=== PATIENT | female | born 1960 | race Hispanic/Latino ===

== ENCOUNTER 2023-02-13 12:40 | Outpatient (CLI) | payer BC, SELFPAY ==
--- NOTE | 2023-02-14 06:15 | WPDPFTINT ---
PFT Procedure Performed PFT Procedure Performed Spirometry with Pre/Post Bronchodilator Plethysmography (Lung Vol) Diffusing Cap (DLCO) Flow Vol Loop PFT Interpretation This is a pulmonary function test with pre and post-bronchodilator spirometry, plethysmography and diffusing capacity. The test was performed and results interpreted in accordance with the 2019 and 2005 ATS/ERS Task Force guidelines respectively using the Global Lung Function Initiative-2012 reference equations. Patient demonstrated good effort and cooperation. Reproducibility criteria were met. The quality of the pre bronchodilator spirometry maneuver was Grade A and post bronchodilator spirometry maneuver was Grade A. Findings: Spirometry: The contour the inspiratory and expiratory flow tracing are normal. The pre bronchodilator FVC is 2.59 L, 103% predicted. The the pre bronchodilator FEV1 is 2.09 L, 102% predicted. The pre bronchodilator FEV1: FVC ratio is 81%. The post bronchodilator FVC is 2.59 L, representing no change. The post bronchodilator FEV1 is 2.16 L, representing a 3% increase. The post bronchodilator FEV1: FVC ratio is 83%. Plethysmography: The total lung capacity is 4.51 L, 95% predicted. The functional residual capacity is 1.73 L, 65% predicted. The residual volume is 1.70 L, 91% predicted. Diffusing capacity: The diffusing capacity unadjusted for hemoglobin and carboxyhemoglobin is 19.5, 94% predicted. The diffusing capacity adjusted for alveolar volume is 5.16, 114% predicted. Impression: The spirometry is normal without evidence of an obstructive abnormality. There is no significant improvement after inhaling a single dose of albuterol. The lung volumes are normal. The diffusing capacity is normal. There are no prior studies for comparison
== END 2023-02-13 12:41 | disposition home or self-care (01) ==
PROVIDERS: PCP Nurse Practitioner Family; Visit Provider Nurse Practitioner Family
DX: J41.1 Mucopurulent chronic bronchitis (principal)
CPT/HCPCS: 94060; 94726; 94729

== ENCOUNTER 2023-04-03 02:55 | Day surgery (SDC) | payer BC, SELFPAY ==
[2023-03-17 14:42] VITALS: BMI 43.5
--- NOTE | 2023-04-01 08:53 | SUR.PREOP ---
Patient called regarding upcoming procedure. Reviewed preop instructions, appointment times, and procedure prep.
--- NOTE | 2023-04-02 09:40 | P.PNAN_ITS ---
Anes - Initial Pre Proc Eval Procedure: Operation Date: 04/03/23 12:30 Proposed Procedures p Screening Colonoscopy - Patrick Lizarraga MD Date/Time: 04/02/23 09:40 Surgeon: Patrick Lizarraga MD Pre Op Diagnosis: neoplasm screening Patient Data Age: 62 Gender: F Height: 1.57 m Weight: 108 kg Allergies Allergy/AdvReac Type Severity Reaction Status Date / Time No Known Allergies Allergy Verified 04/03/23 11:24 Home Medications Medication Instructions Recorded Confirmed Type hydrochlorothiazide 25 mg tablet 25 mg PO DAILY 02/25/22 03/17/23 History albuterol sulfate 90 mcg/actuation 2 inh inhalation Q4H #8.5 grams 06/09/22 03/17/23 Rx aerosol inhaler meloxicam 15 mg tablet 15 mg PO DAILY #90 tabs 09/22/22 03/17/23 Rx benzonatate 200 mg capsule 200 mg PO TID PRN cough #30 caps 12/03/22 03/17/23 Rx chlorthalidone 25 mg tablet 25 mg PO DAILY 04/03/23 04/03/23 History Patient hx anesthesia problems: none Family hx anesthesia problems: none Results Review: All pre-operative results and documents have been reviewed as part of the pre- operative evaluation. [facility] Past Medical History Medical History Kidney stones UTI (urinary tract infection) Surgical History Surgical History H/O ureteroscopy (~2016) History of (~1986) History of primary section (~1982) Previous section (~1998) Family History Family History Sibling Hypertension Mother Hepatitis C Social History Social History Smoking status: Never smoker Alcohol intake: current Alcohol use details: 1 - 2 monthly Substance use: never Substance use type: does not use Lack of Transportation: No Lack of Food: Never True Current Housing: I Have Housing Concerned About Future Housing: No Difficulty Paying Gas/Electric Bills: No Difficulty Paying for Meds: No Currently Unemployed: No Education: High School Diploma/GED Difficulty w/ Childcare or Family Care: No Living arrangements: with family Occupation/Education: occupation Gender identity (if verbalized by the patient): Female Spiritual care concerns: No Anes - Eval Final PreProcedure Day of Procedure 04/02/23 09:40 Patient weight: morbidly obese Heart: regular rate and rhythm Lungs: clear to auscultation Airway: Mallampati scale class II Neurological: alert and oriented Last oral intake: >/= 8 hours ASA classification: III Emergent: no Anesthetic plan: proceed Anesthesia type and monitoring: general GIVS and standard monitoring Results Review: All pre-operative results and documents have been reviewed as part of the pre- operative evaluation. Informed Consent: The patient's anesthetic plan and its attendant risks and benefits were discussed with the patient/family/POA. Questions were solicited and answers provided to the satisfaction of the patient/family/POA.
[2023-04-03 11:27] VITALS: BP 146/78; PULSE 78; RESP 20; TEMP 36.8; O2SAT 98; BMI 43.7
--- NOTE | 2023-04-03 11:31 | PM.HPGS ---
History of Present Illness History of Present Illness Consent: Risks, benefits, and alternatives have been discussed and questions answered. Patient agrees to proceed with procedure. Chief complaint: neoplasm screening Narrative: Betsy Britt is a 62 year old female presents for screening colonoscopy. Patient's current weight appetite and bowel movements are normal. She denies abdominal pain. She has had no bleeding. She reports prior colonoscopy 10 years ago was unremarkable. Review of Systems Review of Systems: Review of systems noncontributory. [facility] Past Medical History Medical History Kidney stones UTI (urinary tract infection) Surgical History Surgical History H/O ureteroscopy (~2016) History of (~1986) History of primary section (~1982) Previous section (~1998) Family History Family History Sibling Hypertension Mother Hepatitis C Social History Social History Smoking status: Never smoker Alcohol intake: current Alcohol use details: 1 - 2 monthly Substance use: never Substance use type: does not use Lack of Transportation: No Lack of Food: Never True Current Housing: I Have Housing Concerned About Future Housing: No Difficulty Paying Gas/Electric Bills: No Difficulty Paying for Meds: No Currently Unemployed: No Education: High School Diploma/GED Difficulty w/ Childcare or Family Care: No Living arrangements: with family Occupation/Education: occupation Gender identity (if verbalized by the patient): Female Spiritual care concerns: No Meds Home Medications and Allergies Home Medications Medication Instructions Recorded Confirmed Type hydrochlorothiazide 25 mg tablet 25 mg PO DAILY 02/25/22 03/17/23 History albuterol sulfate 90 mcg/actuation 2 inh inhalation Q4H #8.5 grams 06/09/22 03/17/23 Rx aerosol inhaler meloxicam 15 mg tablet 15 mg PO DAILY #90 tabs 09/22/22 03/17/23 Rx benzonatate 200 mg capsule 200 mg PO TID PRN cough #30 caps 12/03/22 03/17/23 Rx chlorthalidone 25 mg tablet 25 mg PO DAILY 04/03/23 04/03/23 History Allergies Allergy/AdvReac Type Severity Reaction Status Date / Time No Known Allergies Allergy Verified 04/03/23 11:24 Vital Signs Vital Signs - 24 hr 04/03/23 11:27 Temperature 98.3 F Pulse Rate 78 Respiratory Rate 20 Blood Pressure 146/78 H Pulse Oximetry 98 Oxygen Delivery Room Air Exam Narrative: Physical exam reveals patient to be alert. Vital signs stable. HEENT exam is unremarkable. Patient is anicteric. Lungs are clear to auscultation and percussion. Heart is without murmur or extra sounds. Abdomen bowel sounds are present soft nontender with no organomegaly. Digital external rectal exam normal. Assessment and Plan Assessment and plan (1) Encounter for screening colonoscopy: Code(s): Z12.11 - Encounter for screening for malignant neoplasm of colon Status: Acute Assessment and Plan: Patient presents for screening colonoscopy. Further recommendations may be given after endoscopy.
[2023-04-03] MEDS: LACTATED RINGERS 1,000 ML 150 ML IV CONT (11:33)
[2023-04-03 12:29] VITALS: BP 107/65; PULSE 77; RESP 20; O2SAT 98
[2023-04-03 12:39] VITALS: BP 125/83; PULSE 71; RESP 22; O2SAT 100
[2023-04-03 12:49] VITALS: BP 136/85; PULSE 70; RESP 20; O2SAT 100
== END 2023-04-03 13:04 | disposition home or self-care (01) ==
PROVIDERS: PCP Family Medicine Adolescent Medicine; Visit Provider Internal Medicine Gastroenterology
PROC: 0DJD8ZZ Inspection of Lower Intestinal Tract, Via Natural or Artificial Opening Endoscopic (ICD-10-PCS; CPT 45378; principal; 2023-04-03 12:30)
DX: Z12.11 Encounter for screening for malignant neoplasm of colon (principal); K64.8 Other hemorrhoids; Z79.51 Long term (current) use of inhaled steroids; E66.01 Morbid (severe) obesity due to excess calories; Z68.41 Body mass index [BMI] 40.0-44.9, adult
CPT/HCPCS: 45378; J2704; J7120

== ENCOUNTER 2023-05-18 08:26 | Outpatient (CLI) | payer BC, SELFPAY ==
[2023-05-18 08:58] LABS: Anion Gap 4 mmol/L (8-16); Blood Urea Nitrogen 14 mg/dL (7-17); Calcium 9.7 mg/dL (8.4-10.2); Carbon Dioxide 34 mmol/L (22-30); Chloride 102 mmol/L (98-107); Estimated Glomerular Filt Rate > 60; Glucose 108 mg/dL (65-110); Potassium 3.9 mmol/L (3.4-5.0); Sodium 140 mmol/L (137-145)
== END 2023-05-18 08:27 | disposition home or self-care (01) ==
PROVIDERS: Anesthesiology; PCP Family Medicine Adolescent Medicine; Visit Provider Obstetrics & Gynecology
DX: Z51.81 Encounter for therapeutic drug level monitoring (principal); Z79.899 Other long term (current) drug therapy; Z01.818 Encounter for other preprocedural examination
CPT/HCPCS: 36415; 80048

== ENCOUNTER 2023-05-22 00:28 | Day surgery (SDC) | payer BC, SELFPAY ==
[2023-05-13 15:45] VITALS: BMI 43.9
--- NOTE | 2023-05-13 16:07 | PC.NURSE ---
Report to the Outpatient Waiting Room, entrance under the green pavilion located off [facility], at time __8:30AM on date __05/22/23 . Planned Procedure Time: __10:30AM . Time changes happen often and if your time is changed the preop area will call you the afternoon before. - You and your visitor will be asked to self-screen and do not enter if you have any COVID symptoms. - A mask is optional within the hospital at this time. Patients may have clear liquids (water, carbonated beverages, clear teas, apple juice) until 3 hours prior to surgery with a maximum of 20 ounces. - No food from midnight until time of surgery. Take the following medications with a SIP of water the morning of surgery: __INHALER NEEDED DO NOT STOP ANY OF YOUR OTHER PRESCRIPTION MEDICATIONS PRIOR TO SURGERY ?EXCEPT THE FOLLOWING Medications to discontinue per physician NONE Date to take last dose Please no make-up, nail czech, hairspray, perfume, deodorant, or body powder the day of surgery. No jewelry (including any body piercings) or valuables the day of surgery, leave them at home. Please take a shower or bath the night before, or the morning of, surgery with an antibacterial soap. Wear comfortable, loose fitting clothing. - Jewelry must be removed prior to entering the operating room. Rings and piercings that are not removed may be cut off. - The hospital will not accept responsibility for valuables. - Please leave all valuables, including medications, at home the day of surgery. If you are going home after surgery, a licensed ice cream truck driver must drive you home. - NO public transportation without another adult if you receive anesthesia. - We recommend that an adult stay with you for 24 hours following discharge. - We also recommend that you do not drive, make important decision, drink alcoholic beverages, or take any drugs that were not prescribed by your health care provider for at least 24 hours after your discharge time. Follow any additional instructions given to you from your surgeon. If you or anyone in your household have experienced Covid symptoms in the past week, please notify your surgeon or the nurse liaison at the phone number below for possible testing. Telephone instructions given to ____PATIENT and asked if any additional questions and then verbalized understanding. Patient advised to call surgeon office or pre surgery nurse liaison [phone] if any additional questions.
--- NOTE | 2023-05-21 13:57 | PM.IMHP ---
H&P: HPI History of Present Illness Date/Time: 05/21/23 13:57 Chief Complaint: Endometrial polyp Narrative: Patient with episode of postmenopausal bleeding. She had endometrial biopsy in the office which showed endometrial polyp. She was recommended for D and C hysteroscopy. Review of Systems Review of Systems: All systems reviewed & are unremarkable except as noted in HPI and below Cardiovascular: Cardiovascular: Reports no additional cardiovascular complaints, Denies chest pain and Denies dyspnea Respiratory: Respiratory: Reports no additional respiratory complaints and Denies dyspnea Gastrointestinal: Gastrointestinal: Reports abdominal pain, Denies change in bowel habits, Denies diarrhea, Denies nausea and Denies vomiting Genitourinary: Genitourinary: Reports pelvic pain Musculoskeletal: Musculoskeletal: Reports back pain Integumentary/Breasts: Skin/Breast: Reports system reviewed and no additional complaints, except as docu Neurologic: Reports system reviewed and no additional complaints, except as documented PMF Past Medical History Medical History Kidney stones Morbid obesity UTI (urinary tract infection) Surgical History Surgical History H/O ureteroscopy (~2016) History of (~1986) History of primary section (~1982) Previous section (~1998) Family History Family History Sibling Hypertension Mother Hepatitis C Social History Social History Smoking status: Never smoker Alcohol intake: current Alcohol use details: 1 - 2 monthly Substance use: never Substance use type: does not use Lack of Transportation: No Lack of Food: Never True Current Housing: I Have Housing Concerned About Future Housing: No Difficulty Paying Gas/Electric Bills: No Difficulty Paying for Meds: No Currently Unemployed: No Education: High School Diploma/GED Difficulty w/ Childcare or Family Care: No Living arrangements: with family Additional living arrangements comments: [employer]- Occupation/Education: occupation Gender identity (if verbalized by the patient): Female Spiritual care concerns: No Meds Home Medications and Allergies Home Medications Medication Instructions Recorded Confirmed Type chlorthalidone 25 mg tablet 25 mg PO QAM 04/03/23 05/13/23 History albuterol sulfate 90 mcg/actuation 2 inh inhalation Q4H PRN Shortness 05/13/23 05/13/23 History aerosol inhaler Of Breath Or Wheezing loratadine 10 mg tablet (Claritin) 10 mg PO DAILY 05/13/23 05/13/23 History meloxicam 15 mg tablet 15 mg PO QAM 05/13/23 05/13/23 History Allergies Allergy/AdvReac Type Severity Reaction Status Date / Time No Known Allergies Allergy Verified 05/13/23 15:41 Exam Const: Orientation/consciousness: oriented to person and oriented to place HENMT: Head: normal to inspection Eyes: General: appearance normal, both eyes and all related structures Resp: Effort & Inspection: normal respiratory effort Auscultation: clear to auscultation bilaterally Cardio: Rate: regular rate Rhythm: regular rhythm GI: Inspection: normal to inspection GI Palp: No Rebound tenderness present Neuro: General: oriented to person and oriented to place Cognition (Neuro): normal cognition Extrem: General: normal to inspection Psych: Appearance: grossly normal and well kempt Assessment and Plan Assessment and plan (1) Endometrial polyp: Code(s): N84.0 - Polyp of corpus uteri Status: Acute Assessment and Plan: Will proceed with Dilation and curettage and hysteroscopy and removal of endometrial lesion if present. (2) Postmenopausal bleeding: Code(s): N95.0 - Postmenopausal bleeding Status: Acute
[2023-05-22] MEDS: ACETAMINOPHEN 500 MG TABLET 1000 MG PO (09:00)
[2023-05-22] MEDS: LACTATED RINGERS 1,000 ML 30 ML IV CONT (09:00)
--- NOTE | 2023-05-22 09:21 | WPDANESEPPF ---
Anes - Initial Pre Proc Eval Procedure: Operation Date: 05/22/23 10:30 Proposed Procedures p Hysteroscopy Dilation and Curettage with Removal of any Endometrial Lesion, If Necessary - Roland Naik MD Date/Time: 05/22/23 09:21 Surgeon: Roland Naik MD Pre Op Diagnosis: endometrial polyp, post menopausal bleeding Patient Data Age: 63 Gender: F Height: 1.57 m Weight: 109 kg Allergies Allergy/AdvReac Type Severity Reaction Status Date / Time No Known Allergies Allergy Verified 05/13/23 15:41 Home Medications Medication Instructions Recorded Confirmed Type chlorthalidone 25 mg tablet 25 mg PO QAM 04/03/23 05/13/23 History albuterol sulfate 90 mcg/actuation 2 inh inhalation Q4H PRN Shortness 05/13/23 05/13/23 History aerosol inhaler Of Breath Or Wheezing loratadine 10 mg tablet (Claritin) 10 mg PO DAILY 05/13/23 05/13/23 History meloxicam 15 mg tablet 15 mg PO QAM 05/13/23 05/13/23 History Patient hx anesthesia problems: none Family hx anesthesia problems: none Results Review: All pre-operative results and documents have been reviewed as part of the pre-operative evaluation. [facility] Past Medical History Medical History (Updated 05/22/23 @ 09:21 by Marv Jha MD) Kidney stones Morbid obesity UTI (urinary tract infection) Surgical History Surgical History H/O ureteroscopy (~2016) History of (~1986) History of primary section (~1982) Previous section (~1998) Family History Family History Sibling Hypertension Mother Hepatitis C Social History Social History Smoking status: Never smoker Alcohol intake: current Alcohol use details: 1 - 2 monthly Substance use: never Substance use type: does not use Lack of Transportation: No Lack of Food: Never True Current Housing: I Have Housing Concerned About Future Housing: No Difficulty Paying Gas/Electric Bills: No Difficulty Paying for Meds: No Currently Unemployed: No Education: High School Diploma/GED Difficulty w/ Childcare or Family Care: No Living arrangements: with family Additional living arrangements comments: [place]- Occupation/Education: occupation Gender identity (if verbalized by the patient): Female Spiritual care concerns: No Anes - Eval Final PreProcedure Day of Procedure 05/22/23 09:21 Patient weight: morbidly obese Heart: regular rate and rhythm Lungs: clear to auscultation Airway: Mallampati scale class II Neurological: alert and oriented Last oral intake: >/= 8 hours ASA classification: III Emergent: no Anesthetic plan: proceed Anesthesia type and monitoring: general GIVS and standard monitoring Results Review: All pre-operative results and documents have been reviewed as part of the pre-operative evaluation. Informed Consent: The patient's anesthetic plan and its attendant risks and benefits were discussed with the patient/family/POA. Questions were solicited and answers provided to the satisfaction of the patient/family/POA.
[2023-05-22 09:30] VITALS: BP 141/81; PULSE 77; RESP 18; TEMP 36.6; O2SAT 97
--- NOTE | 2023-05-22 09:39 | WPDHPUPDATE1 ---
History and Physical Update Update Date/Time: 05/22/23 09:39 History and Physical has been reviewed, including an updated exam of the patient. There are NO changes in the patient's condition. Risks, benefits, and alternatives have been discussed and questions answered. Patient agrees to proceed with procedure.
[2023-05-22] MEDS: ceFAZolin 2 GM/D5W 50 ML 2 GM/50 ML BAG IVPB (10:00)
[2023-05-22] MEDS: LIDOCAINE HCL 1% LOCAL INJ 20 ML VIAL 10 ML INFILTRATE (10:14)
--- NOTE | 2023-05-22 10:39 | W.PM.PROC2 ---
Procedure Note - Detailed Date of Procedure 05/22/23 Pre-op Diagnosis endometrial polyp, post menopausal bleeding Post-op Diagnosis Same Procedure Performed Hysteroscopy with removal of endometrial growths, dilation and curettage Surgeon Roland Naik MD Anesthesia MAC and Local Indications Postmenopausal bleeding and endometrial polyp on endometrial biopsy Findings Uterus sound to 8.5, multiple growth in uterus, some consistent with polyp consistency, some of the lesions were calcified and consistent with calcified fibroids Description of Procedure After informed consent was obtained patient was taken to the operating room and adequate IV sedation was administered. Attention was turned to the vagina. Speculum was inserted. Single-tooth tenaculum placed on the anterior lip of the cervix. The uterus was sounded to 8.5cm. The cervix was dilated to an 4 Corea dilator. The hysteroscope was inserted into the cavity. The findings per above. The Aveta shaving instrument was used to remove all of the multiple growths. Several pieces were retrieved with grasper. A curettage was performed and the hysteroscope was inserted. The cavity was normal. The hysteroscope was removed the single-tooth tenaculum was removed hemostasis was noted at the tenaculum site. Sponge count correct. The patient taken to recovery in stable condition. Estimated Blood Loss 5 Drains No Packing No Pathology Yes (Shavings and endometrial curettings) Complications No immediate complications Condition Stable Disposition Same day [facility] Billing Surgery - Charge Forward: Surgery Billing
[2023-05-22 10:40] VITALS: BP 108/59; PULSE 80; RESP 20; O2SAT 94
[2023-05-22 11:00] VITALS: BP 116/62; PULSE 79; RESP 16; O2SAT 95
[2023-05-22 11:30] VITALS: BP 128/68; PULSE 67; RESP 16
[2023-05-22] MEDS: oxyCODONE HCL (*CRX) 5 MG TAB IR PO (11:34)
== END 2023-05-22 11:43 | disposition home or self-care (01) ==
PROVIDERS: PCP Family Medicine Adolescent Medicine; Visit Provider Obstetrics & Gynecology
PROC: 0U5B8ZZ Destruction of Endometrium, Via Natural or Artificial Opening Endoscopic (ICD-10-PCS; CPT 58563; principal; 2023-05-22 10:30)
DX: N95.0 Postmenopausal bleeding (principal); N84.0 Polyp of corpus uteri; D25.9 Leiomyoma of uterus, unspecified; Z79.51 Long term (current) use of inhaled steroids; E66.01 Morbid (severe) obesity due to excess calories; Z68.41 Body mass index [BMI] 40.0-44.9, adult
CPT/HCPCS: 58558; 88305; A9270; J0690; J1100; J2250; J2371; J2405; J2704; J3010; J7120

== ENCOUNTER 2023-10-07 14:05 | Outpatient (CLI) | payer BC, SELFPAY ==
--- NOTE | ~2023-10-07 | US_ITS ---
EXAMINATION: US soft tissue UE RT DATE: 10/07/2023 14:19 INDICATION: Localized swelling, mass and lump, right upper limb. TECHNIQUE: Multiple grayscale and Doppler ultrasound images of the right upper limb were obtained. COMPARISON: None FINDINGS: In the patient's area of concern in the right upper arm, there is a 2.5 x 1.1 x 3.0 cm subc utaneous mass with similar echogenicity and echotexture to subcutaneous fat, consistent with a lipoma . IMPRESSION: 1. 3.0 cm lipoma in right upper arm. Reviewed, dictated and finalized at location A.
== END 2023-10-07 14:06 ==
LOC: MICIMG 14:06
PROVIDERS: PCP Family Medicine Adolescent Medicine; Visit Provider Nurse Practitioner Family
DX: R22.31 Localized swelling, mass and lump, right upper limb (principal)
CPT/HCPCS: 76882

== ENCOUNTER 2023-11-11 00:45 | Day surgery (SDC) | payer BC, SELFPAY ==
[2023-11-04 16:00] VITALS: BMI 43.0
--- NOTE | 2023-11-04 16:00 | PC.NURSE ---
Report to the Outpatient Waiting Room, entrance under the green pavilion located off [facility], at time _1100_ on date _[id number]_. Planned Procedure Time: _1pm_. Time changes happen often and if your time is changed the preop area will call you the afternoon before. - You and your visitor will be asked to self-screen and do not enter if you have any COVID symptoms. - A mask is optional within the hospital at this time. Patients may have clear liquids (water, carbonated beverages, clear teas, apple juice) until 3 hours prior to surgery with a maximum of 20 ounces. - No food from midnight until time of surgery Take the following medications with a SIP of water the morning of surgery: None DO NOT STOP ANY OF YOUR OTHER PRESCRIPTION MEDICATIONS PRIOR TO SURGERY ?EXCEPT THE FOLLOWING Medications to discontinue per physician ____Terzepatide Date to take last dose___Do not take dose [id number] Please no make-up, nail azeri, hairspray, perfume, deodorant, or body powder the day of surgery. No jewelry (including any body piercings) or valuables the day of surgery, leave them at home. Please take a shower or bath the night before, or the morning of, surgery with an antibacterial soap. Wear comfortable, loose fitting clothing. - Jewelry must be removed prior to entering the operating room. Rings and piercings that are not removed may be cut off. - The hospital will not accept responsibility for valuables. - Please leave all valuables, including medications, at home the day of surgery. If you are going home after surgery, a licensed retail delivery driver must drive you home. - NO public transportation without another adult if you receive anesthesia. - We recommend that an adult stay with you for 24 hours following discharge. - We also recommend that you do not drive, make important decision, drink alcoholic beverages, or take any drugs that were not prescribed by your health care provider for at least 24 hours after your discharge time. Follow any additional instructions given to you from your surgeon. If you or anyone in your household have experienced Covid symptoms in the past week, please notify your surgeon or the nurse liaison at the phone number below for possible testing. Telephone instructions given to _Betsy__and asked if any additional questions and then verbalized understanding. Patient advised to call surgeon office or pre surgery nurse liaison [phone] if any additional questions.
[2023-11-11] MEDS: LACTATED RINGERS 1,000 ML 30 ML IV CONT (11:30)
--- NOTE | 2023-11-11 11:51 | WPDHPUPDATE1 ---
History and Physical Update Update Date/Time: 11/11/23 11:51 History and Physical has been reviewed, including an updated exam of the patient. There are NO changes in the patient's condition. Risks, benefits, and alternatives have been discussed and questions answered. Patient agrees to proceed with procedure.
--- NOTE | 2023-11-11 11:56 | WPDANESEPP ---
Anes - Eval Pre Procedure Procedure: Operation Date: 11/11/23 13:00 Proposed Procedures p Excision Subcutaneous Mass Right Upper Arm - Vitor De Souza MD Date/Time: 11/11/23 11:56 Pre Op Diagnosis: 3 cm Subcutaneous Mass Right Arm Patient Data Age: 63 Gender: F Height: 1.57 m Weight: 106.8 kg Allergies Allergy/AdvReac Type Severity Reaction Status Date / Time No Known Allergies Allergy Verified 11/04/23 15:53 Home Medications Medication Instructions Recorded Confirmed Type chlorthalidone 25 mg tablet 25 mg PO QAM 04/03/23 11/04/23 History albuterol sulfate 90 mcg/actuation 2 inh inhalation Q4H PRN Shortness 05/13/23 11/04/23 History aerosol inhaler Of Breath Or Wheezing loratadine 10 mg tablet (Claritin) 10 mg PO DAILY 05/13/23 11/04/23 History meloxicam 15 mg tablet 15 mg PO QAM 05/13/23 11/04/23 History tirzepatide (weight loss) 5 mg/0.5 5 mg (0.5 mL) subcut WEEKLY #2 mL 10/26/23 11/04/23 Rx mL subcutaneous pen injector (Zepbound) Patient hx anesthesia problems: other (arrhythmia with eswl) Family hx anesthesia problems: none Results Review: All pre-operative results and documents have been reviewed as part of the pre-operative evaluation. [facility] Past Medical History Medical History (Updated 11/11/23 @ 11:57 by Malou Ferrara CRNA) Kidney stones Morbid obesity Osteoarthritis UTI (urinary tract infection) Surgical History Surgical History H/O ureteroscopy (~2016) History of (~1986) History of primary section (~1982) Previous section (~1998) Family History Family History Sibling Hypertension Mother Hepatitis C Social History Social History Smoking status: Never smoker Alcohol intake: current Alcohol use details: 1 - 2 monthly Substance use: never Substance use type: does not use Lack of Transportation: No Lack of Food: Never True Current Housing: I Have Housing Concerned About Future Housing: No Difficulty Paying Gas/Electric Bills: No Difficulty Paying for Meds: No Currently Unemployed: No Education: High School Diploma/GED Difficulty w/ Childcare or Family Care: No Living arrangements: with family Additional living arrangements comments: [employer]- Occupation/Education: occupation Gender identity (if verbalized by the patient): Female Spiritual care concerns: No Exam Day of Procedure 11/11/23 11:56
--- NOTE | 2023-11-11 11:58 | P.PNAN_ITS ---
Anes - Eval Final PreProcedure Day of Procedure 11/11/23 11:58 Patient weight: morbidly obese Heart: regular rate and rhythm Lungs: clear to auscultation Airway: Mallampati scale class II Neurological: alert and oriented Last oral intake: >/= 8 hours ASA classification: III Emergent: no Anesthetic plan: proceed Anesthesia type and monitoring: general GIVS and standard monitoring Results Review: All pre-operative results and documents have been reviewed as part of the pre- operative evaluation. Informed Consent: The patient's anesthetic plan and its attendant risks and benefits were discussed with the patient/family/POA. Questions were solicited and answers provided to the satisfaction of the patient/family/POA.
[2023-11-11 12:00] VITALS: BP 141/66; PULSE 76; RESP 16; TEMP 36.6; O2SAT 97
[2023-11-11] MEDS: BUPIVACAINE/EPINEPHRINE 0.5% 50 ML VIAL 20 ML INFILTRATE (12:20)
[2023-11-11 12:43] VITALS: BP 124/71; PULSE 77; RESP 16; O2SAT 95
--- NOTE | 2023-11-11 12:46 | P.OP_ITS ---
Procedure Note - Detailed Date of Procedure 11/11/23 Pre-op Diagnosis 3 cm Subcutaneous Mass Right upper arm Post-op Diagnosis Same Procedure Performed Excision 3.4 cm subcutaneous mass right upper arm Surgeon Vitor De Souza MD Ems Instructor Catina Stephens [facility] Anesthesia MAC and Local Indications Patient has a tender nodule in the lateral mid right upper arm. Ultrasound imaging suggest this is a lipoma about 3 cm in size. Clinical findings are consistent with a lipoma as well. She is taken to surgery now for excision. Findings Superficial subcutaneous lipoma that measured 3.4 x 3 x 1.5 cm. Description of Procedure Patient was checked in the preoperative holding area. The proposed incision and area of the subcutaneous nodule were marked on the right arm. She was then taken to surgery and placed in supine position with the right arm somewhat over her anterolateral trunk. The area of the lesion was prepped and draped. Local was infiltrated in the area the anticipated incision. Incision was made and almost immediately under the skin was noted a nodule grossly consistent with a lipoma. This was carefully dissected from the dermis and the surrounding subcutaneous. Once removed, it was measured with the above measurements. Cautery was used for hemostasis. The wound was closed with interrupted subcuticular 4-0 Vicryl suture. The skin was finally closed with a running 4-0 Monocryl skin suture. The wound was dressed with Exofin surgical adhesive. The patient was awakened and taken to outpatient surgery in good condition. Sponge needle counts were correct x2. Estimated Blood Loss -2 Drains No Packing No Pathology Yes (3.4 cm nodule right upper arm) Complications None Condition Stable Disposition Same day [facility] Billing Surgery - Charge Forward: Surgery Billing (Excision 3.4 cm subcutaneous mass right upper arm)
[2023-11-11 13:10] VITALS: BP 132/68; PULSE 82; RESP 16; O2SAT 98
[2023-11-11 13:26] VITALS: BP 135/70; PULSE 72; RESP 16; O2SAT 100
== END 2023-11-11 13:32 | disposition home or self-care (01) ==
PROVIDERS: PCP Family Medicine Adolescent Medicine; Visit Provider Surgery
PROC: (CPT 24071; principal; 2023-11-11 13:00)
DX: D17.21 Benign lipomatous neoplasm of skin and subcutaneous tissue of right arm (principal); E66.01 Morbid (severe) obesity due to excess calories; Z68.41 Body mass index [BMI] 40.0-44.9, adult; Z79.51 Long term (current) use of inhaled steroids; Z79.85 Long-term (current) use of injectable non-insulin antidiabetic drugs
CPT/HCPCS: 24071; 88304; J1100; J2250; J2405; J2704; J3010; J7120